=== PATIENT | male | born 1980 | race Caucasian/White ===

== ENCOUNTER 2025-03-08 01:08 | Observation (INO) | payer OTHER ==
[~2025-03-08] VITALS: Ht 180.3 cm; Wt 138.8 kg
[2025-03-08] MEDS ORDERED: VANCOMYCIN HCL 1.5 GM/250 ML BAG IV STA (01:15)
--- NOTE | 2025-03-08 01:25 | ERN ---
General Chief Complaint: Sepsis Stated Complaint: FEVER Time Seen by MD: 01:15 History of Present Illness Initial Comments 44-year-old male history of hypertension on blood pressure medications follow up by PCP in [facility] here for evaluation of elevated heart rate. Patient states that he was recently seen and evaluated by his PCP after he was diagnosed with a an abscess to his right inguinal region. He was given antibiotics and a small incision and drainage was done at that time. However he still states that he might have some drainage from that area. Associated signs and symptoms include fever. No cough or shortness a breath. No nausea vomiting diarrhea. No abdominal pain. Do not chest pain. Allergies: Coded Allergies: carbinoxamine (Unverified Allergy, Unknown, 03/08/25) levofloxacin (Unverified Allergy, Unknown, 03/08/25) Past Medical History Past Medical History: Hypertension, Other Medical History Other: SEASONAL ALLERGIES Past Surgical History: Other Surgical History Other: BILATERAL EYES Skin: (+) abscess Review of Systems: was completed, & the rest were negative. Physical Exam General Appearance: (+) no apparent distress, (+) obese Orientation: (+) alert, (+) oriented x 3 Head/Face Trauma: No Eye: bilateral eye normal inspection, bilateral eye PERRL, bilateral eye EOMI Ear, Nose, Throat: (+) hearing grossly normal, (+) normal ENT inspection, (+) moist mucous membraine, (+) normal pharynx Neck: (+) normal inspection Heart: (+) regular; (-) murmur Gastrointestinal: (+) soft, (+) non-tender Results Laboratory and Microbiology Lab and Micro Result Laboratory Tests Test 03/08/25 01:25 03/08/25 01:46 White Blood Count 13.3 K/uL (4.8-10.8) H Red Blood Count 5.13 MIL/uL (4.50-6.20) Hemoglobin 15.1 g/dL (14.0-18.0) Hematocrit 45.1 % (42-54) Mean Corpuscular Volume 87.9 fL (79-99) Mean Corpuscular Hemoglobin 29.4 pg (27.0-33.0) Mean Corpuscular Hemoglobin Concent 33.5 g/dL (32.0-36.0) Red Cell Distribution Width 12.4 % (11.0-15.5) Platelet Count 321 K/uL (130-400) Mean Platelet Volume 9.9 fL (7.5-10.5) Immature Granulocyte % (Auto) 0.4 % (0-1) Neutrophils (%) (Auto) 77.1 % (40.0-77.0) H Lymphocytes (%) (Auto) 10.7 % (21.0-51.0) L Monocytes (%) (Auto) 11.1 % (3.0-13.0) Eosinophils (%) (Auto) 0.5 % (0.0-8.0) Basophils (%) (Auto) 0.2 % (0.0-5.0) Neutrophils # (Auto) 10.2 K/uL (1.8-7.7) H Lymphocytes # (Auto) 1.4 K/uL (1.0-4.8) Monocytes # (Auto) 1.5 K/uL (0.1-1.0) H Eosinophils # (Auto) 0.06 K/uL (0.00-0.70) Basophils # (Auto) 0.03 K/uL (0.00-0.20) Absolute Immature Granulocyte (auto 0.05 K/uL (0-1) Nucleated Red Blood Cells 0.0 % (0.0-0.19) Sodium Level 135 mmol/L (136-145) L Potassium Level 4.1 mmol/L (3.5-5.1) Chloride Level 99 mmol/L (101-111) L Carbon Dioxide Level 28 mmol/L (21-32) Blood Urea Nitrogen 19 mg/dL (7-18) H Creatinine 0.9 mg/dL (0.5-1.3) Glomerular Filtration Rate Calc 107 mL/min (>90) Random Glucose 124 mg/dL (70-105) H Lactic Acid Level 2.2 mmol/L (0.8-2.5) Total Calcium 9.6 mg/dL (8.5-10.1) Total Creatine Kinase 166 U/L (21-232) Troponin I High Sensitivity 25 ng/L (4-75) Influenza Type A Antigen Negative For Type A Influenza Type B Antigen Negative For Type B SARS-CoV-2 Antigen (Rapid) PRESUMPTIVE NEGATIVE MDM 44-year-old male here for evaluation of right inguinal region abscess. He is meeting sepsis criteria thus we will initiate the sepsis protocol. Disposition pending results of labs and imaging. ED Course Orders Procedure Category Date Status Time Cbc With Differential LAB 03/08/25 Complete 01:15 Blood Cult ROLANDO 03/08/25 In Process 01:15 Urinalysis Profile LAB 03/08/25 Logged 01:15 Culture Urine ROLANDO 03/08/25 Logged 01:15 0.9%Nacl 1000ml (Ns PHA 03/08/25 In Process 1000ml) 01:30 Creatine Kinase, Total LAB 03/08/25 Complete 01:15 Troponin I High LAB 03/08/25 Complete Sensitivity 01:15 Lactic Acid LAB 03/08/25 Complete 01:15 Basic Metabolic Panel LAB 03/08/25 Complete 01:15 Vancomycin 1.5 Gm/250 PHA 03/08/25 Complete Ml Bag (Vancomycin 01:15 Vancomycin 2gm/500 Ml PHA 03/08/25 In Process Bag (Vancomycin 2g 02:00 Vancomycin 1g/250ml PHA 03/08/25 Complete Kit (Vancomycin 1g/2 01:30 Covid19 (Sars Antigen LAB 03/08/25 Complete Rapid) 01:54 Influenza Type A & B, LAB 03/08/25 Complete Rapid 01:54 Chest 1vw RAD 03/08/25 Logged 02:14 Aerobic Culture ROLANDO 03/08/25 Logged 02:35 Ibuprofen 600 Mg PHA 03/08/25 Complete Tablet (Motrin) 03:00 Current Medications Medications (Trade) Dose Ordered Sig/John Route PRN Reason Start Time Stop Time Status Last Admin Dose Admin Ibuprofen (moTRIN) 600 mg ONCE ONCE PO 03/08/25 03:00 03/08/25 03:01 DC 03/08/25 02:55 Sodium Chloride 4,350 ml @ 1,450 mls/hr ONCE ONCE IV 03/08/25 01:30 03/08/25 04:29 03/08/25 01:35 Vancomycin HCl 500 ml @ 125 mls/hr ONCE ONCE IV 03/08/25 02:00 03/08/25 05:59 03/08/25 01:53 Vancomycin HCl 500 ml @ As Directed STK-MED ONCE IV 03/08/25 01:30 03/08/25 01:31 DC Vancomycin HCl (Vancomycin 1.5 Gm/250 ml Bag) 1.5 gm ONCE STAT IV 03/08/25 01:15 03/08/25 01:26 DC Vital Signs Date Time Temp Pulse Resp B/P (MAP) Pulse Ox O2 Delivery O2 Flow Rate FiO2 03/08/25 01:27 101.1 113 18 155/65 100 Room Air* 0 21 03/08/25 01:10 100.6 124 20 155/79 97 Room Air Patient is seen and evaluated by me he is a 44-year-old male with a history of hypertension who we will be admitted for sepsis secondary to failed outpatient treatment of inguinal abscess. He was seen by his PCP and given doxycycline however he was unable to tolerate the doxycycline thus he was switched over to azithromycin. He presents today because of fever and increased heart rate. On my exam he has an old inguinal abscess that is draining mildly at the right inguinal region. We will admit the patient for sepsis secondary to inguinal abscess. Patient is a aware of the admission and he is amenable to staying. Sepsis protocol was initiated. DX & DISP Disposition: Inpatient Decision to Admit Date: Mar 08, 2025 Decision to Admit Time: 01:39 Departure Impression: Primary Impression: Sepsis Additional Impression: Inguinal abscess Condition: Stable Assign Patient to: Spoke to [facility] who will admit the patient Referrals: NONE (PCP) MYAH LOVETT MD Mar 08, 2025 01:25
[2025-03-08 01:39] LABS: IMMATURE GRANULOCYTE ABSOLUTE 0.05 K/uL (0-1); NUCLEATED RED BLOOD CELLS 0.0 % (0.0-0.19); PLATELET COUNT (AUTO) 321 K/uL (130-400); RED BLOOD CELL COUNT(AUTO) 5.13 MIL/uL (4.50-6.20); RED CELL DISTRIBUTION WIDTH 12.4 % (11.0-15.5); WHITE BLOOD COUNT (AUTO) 13.3 K/uL (4.8-10.8)
[2025-03-08] MEDS: VANCOMYCIN 1G/250ML KIT 500 ML IV ONE (01:45)
[2025-03-08] MEDS: VANCOMYCIN 2GM/500 ML BAG 500 ML IV ONE (01:46)
[2025-03-08 01:48] LABS: CREATININE 0.9 mg/dL (0.5-1.3); GLOMERULAR FILTR. RATE CALC 107.0 mL/min (>90); GLUCOSE,RANDOM 124.0 mg/dL (70-105); SODIUM SERUM 135.0 mmol/L (136-145); UREA NITROGEN, BLOOD 19.0 mg/dL (7-18)
[2025-03-08 01:54] LABS: CREATINE KINASE, TOTAL 166.0 U/L (21-232)
[2025-03-08 02:22] LABS: COVID19 (SARS ANTIGEN RAPID) PRESUMPTIVE NEGATIVE (NEGATIVE)
[2025-03-08 02:58] LABS: INFLUENZA TYPE A Negative For Type A (NEGATIVE); INFLUENZA TYPE B Negative For Type B (NEGATIVE)
[2025-03-08 03:19] LABS: APPEARANCE,URINE CLEAR (CLEAR); GLUCOSE, URINE (UA) NEGATIVE (NEGATIVE); LEUKOCYTE ESTERASE ,URINE NEGATIVE Leu/uL (NEGATIVE); NITRATE,URINE NEGATIVE (NEGATIVE); OCCULT BLOOD,URINE +- (TRACE) (NEGATIVE)
[2025-03-08 03:25] LABS: ADD UA MICROSCOPIC YES
[2025-03-08] MEDS ORDERED: PoTASSium chl 10% ELIXIR 20MEQ 20 MEQ/15 ML UDCUP PO PRN (03:30)
[2025-03-08] MEDS ORDERED: VANCOMYCIN PROTOCOL PER PHARMACY IV SCH (03:30)
[2025-03-08] MEDS ORDERED: VANCOMYCIN 1G/250ML KIT 250 ML IV SCH (03:30)
[2025-03-08] MEDS ORDERED: PoTASSium chloRIDE 20MEQ ER 20 MEQ ERTAB PO PRN (03:30)
[2025-03-08] MEDS ORDERED: MAGNESIUM 2GM PREMIX 50ML 50 ML IV PRN (03:30)
[2025-03-08] MEDS ORDERED: HYDROcodone/APAP 5/325 1 TAB TABLET PO PRN (03:30)
--- NOTE | 2025-03-08 03:42 | HMCIMG ---
EXAM: CR Chest, 1 view CLINICAL HISTORY: Sepsis. COMPARISON: None provided. FINDINGS: Portions of the bilateral lower zones and CP angles are excluded from the image, which limits the optimal evaluation. The remaining lung simms are clear. The lungs show no infiltrates or other acute findings. No pleural effusion or pneumothorax. The cardiomediastinal silhouette is within normal limits. No acute osseous abnormality. IMPRESSION: No acute cardiopulmonary process is evident. /[place]
--- NOTE | 2025-03-08 03:54 | HP ---
[facility] PH[facility] Date of Service: Mar 08, 2025 Time of Service: 02:28 PCP: Brad Godinez HISTORY OF PRESENT ILLNESS: This is a 44 year old male morbidly obese and history of hypertension and boil who presents to the ED for complaints of fever and elevated heart rate.Patient reports he was sleeping and woke up with a HR ranging from 120-140 and his temperature from 102 - 103.Patient states he has an abscess to his right inguinal area which started 2 weeks ago. Patient reports he was seen by his PCP and was started initially on Doxycycline and only took 2 doses because he was unable to tolerate the meds therefore it was switch to Azithromycin for 5 days and completed the treatment.Patient states that there was no relief or improvement.On further evaluation patient reports he also has pain on his periumbilical area which is sharp in nature.Patient reports he used to have a boil on his right inguinal hernia when he was 19 years old and an I&D was done and was started on Bactrim and it subsided and now it came on the same location he said. Seen and examined patient in the ER awake,alert ,coherent and ambulatory,appears comfortable.Patient denies chest pain,palpitation,shortness of breath,nausea and vomiting. Latest vital signs temperature 101.1, heart rate 113, pressure 155/65 saturation 100% on room air. Labs: WBC 13 with negative left shift of neutrophils 77, hemoglobin 15 hematocrit 45, platelet count 321. Sodium 135, chloride 99, BUN 19 glucose 124 lactic acid 2.2 troponin 25. Influenza type a and B negative SARS COVID negative. While in the ER patient received vancomycin IV, ibuprofen 600 mg p.o. and fluid resuscitation of NS 30 mL/kilogram over 3 hours. We will admit patient for further medical management. REVIEW OF SYSTEMS CONSTITUTIONAL: Fever Denies night sweats. No unintentional weight loss reported. NEUROLOGICAL: Denies headache, amaurosis fugax, motor weakness, sensory deficit, vertigo/spinning sensation, gait abnormalities, or tremors. ENT: No hearing loss, otalgia, otorrhea, rhinitis, rhinorrhea, hoarseness, or sore throat. CARDIOVASCULAR: Denies any exertional angina, dyspnea on exertion, orthopnea, paroxysmal nocturnal dyspnea, palpitations, life-threatening arrhythmias, claudication. PULMONARY: Denies any shortness of breath, cough, phlegm/sputum, hemoptysis, pleuritic chest pain. SLEEP: Denies morning headaches, daytime somnolence or napping. Denies difficulty falling asleep, staying asleep, waking from sleep. Denies knowledge of snoring. GASTROINTESTINAL: Abdominal pain located around periumbilical area Denies any type of dysphagia to either liquids or solids. Denies nausea, vomiting, pyrosis, early satiety, diarrhea, constipation, or changes in stool consistency or caliber. Denies coffee-ground emesis, hematemesis, hematochezia, or melanotic stools. GENITOURINARY: Denies frequency, urgency, nocturia, hematuria or incontinence (Storage/Irritative symptoms.) Low urinary stream, straining to void, urinary intermittency or hesitancy, splitting of the voiding stream, terminal dribbling. ENDOCRINOLOGIC: Denies polyuria, polydipsia, polyphagia or heat/cold intolerances. HEMATOLOGIC: Denies thrombophilia/previous clots, or coagulopathy/bleeding disorders. ONCOLOGIC: Denies personal history of malignancy. DERMATOLOGIC: Right inguinal abscess PSYCHIATRIC: Denies any suicidal or homicidal ideation. Denies hallucinations. PAST MEDICAL HISTORY: [ Hypertension , morbid obesity and boil ] PAST SURGICAL HISTORY: [ I and D and bilateral eye surgery at the age of [age] years old ] PAST SOCIAL HISTORY: [ Patient lives with . Patient denies alcohol tobacco and recreational drug ] FAMILY HISTORY: [ Diabetes ] Coded Allergies: carbinoxamine (Unverified Allergy, Unknown, 03/08/25) levofloxacin (Unverified Allergy, Unknown, 03/08/25) PHYSICAL EXAM GENERAL APPEARANCE: The patient is awake, alert, and oriented, in no acute cardiopulmonary distress. NEUROLOGICAL: Cranial nerves II-XII grossly intact. Motor is 5/5 in bilateral upper and lower extremities proximal to distal. No sensory deficits. HEENT: Face is symmetric. Pupils are equal and reactive. Extraocular movements are intact. NECK: Supple. No JVD. No thyromegaly. No submental, submandibular, pre- /postauricular, occipital or supraclavicular lymphadenopathy. CHEST: Normal chest expansion. No Telemetry. LUNGS: Absence of any rales, rhonchi or any wheezing. CARDIOVASCULAR: Tachycardic Regular. S1 and S2 normal. No appreciable rubs, murmurs or gallops. ABDOMEN: Tenderness around periumbilical area on palpation Soft and nondistended. There is no rebound, voluntary guarding, or rigidity. : Deferred. No Belle. EXTREMITIES: Non-edematous and not cyanotic. No clubbing. Good capillary refi ll. SKIN: swollen and there is a firmed induration around right inguinal area. Vital Sign (Last 24 Hours) 03/08/25 01:27 Temp 101.1 Pulse 113 Resp 18 B/P (MAP) 155/65 Pulse Ox 100 O2 Delivery Room Air* O2 Flow Rate 0 FiO2 21 LABS: Laboratory: Test 03/08/25 01:46 03/08/25 01:25 Range/Units Influenza Type A Antigen Negative For Type A NEGATIVE Influenza Type B Antigen Negative For Type B NEGATIVE SARS-CoV-2 Antigen (Rapid) PRESUMPTIVE NEGATIVE NEGATIVE White Blood Count 13.3 H 4.8-10.8 K/uL Red Blood Count 5.13 4.50-6.20 MIL/uL Hemoglobin 15.1 14.0-18.0 g/dL Hematocrit 45.1 42-54 % Mean Corpuscular Volume 87.9 79-99 fL Mean Corpuscular Hemoglobin 29.4 27.0-33.0 pg Mean Corpuscular Hemoglobin Concent 33.5 32.0-36.0 g/dL Red Cell Distribution Width 12.4 11.0-15.5 % Platelet Count 321 130-400 K/uL Mean Platelet Volume 9.9 7.5-10.5 fL Immature Granulocyte % (Auto) 0.4 0-1 % Neutrophils (%) (Auto) 77.1 H 40.0-77.0 % Lymphocytes (%) (Auto) 10.7 L 21.0-51.0 % Monocytes (%) (Auto) 11.1 3.0-13.0 % Eosinophils (%) (Auto) 0.5 0.0-8.0 % Basophils (%) (Auto) 0.2 0.0-5.0 % Neutrophils # (Auto) 10.2 H 1.8-7.7 K/uL Lymphocytes # (Auto) 1.4 1.0-4.8 K/uL Monocytes # (Auto) 1.5 H 0.1-1.0 K/uL Eosinophils # (Auto) 0.06 0.00-0.70 K/uL Basophils # (Auto) 0.03 0.00-0.20 K/uL Absolute Immature Granulocyte (auto 0.05 0-1 K/uL Nucleated Red Blood Cells 0.0 0.0-0.19 % Sodium Level 135 L 136-145 mmol/L Potassium Level 4.1 3.5-5.1 mmol/L Chloride Level 99 L 101-111 mmol/L Carbon Dioxide Level 28 21-32 mmol/L Blood Urea Nitrogen 19 H 7-18 mg/dL Creatinine 0.9 0.5-1.3 mg/dL Glomerular Filtration Rate Calc 107 >90 mL/min Random Glucose 124 H 70-105 mg/dL Lactic Acid Level 2.2 0.8-2.5 mmol/L Total Calcium 9.6 8.5-10.1 mg/dL Total Creatine Kinase 166 21-232 U/L Troponin I High Sensitivity 25 4-75 ng/L Current Medications Medications (Trade) Dose Ordered Sig/John Route PRN Reason Start Time Stop Time Status Last Admin Dose Admin Vancomycin HCl (Vancomycin 1.5 Gm/250 ml Bag) 1.5 gm ONCE STAT IV 03/08/25 01:15 03/08/25 01:26 DC DIAGNOSTICS / RADIOLOGY: [ ] ASSESSMENT: Recurrent right inguinal abscess POA R/o deep abscess or early necrotizing infection POA Sepsis 2/2 right inguinal abscess POA Morbid obesity POA Hyperglycemia POA Possible dehydration POA Hypertension POA PLAN: We will admit patient in medical surgical We will start on consistent carb diet We will start NS @ 100 ml / hr x2 bags and re evaluate We will start on Zosyn IV and vancomycin for broad-spectrum coverage We will start on famotidine 20 mg p.o. daily for GI prophylaxis We will replace electrolytes as needed per protocol We will add prn medication for fever,pain,cough , nausea and vomiting We will reconcile home meds once medlist available We will obtain CT abdomen and pelvis without contrast We will seek Infectious Disease consultation We will seek general surgery consultation We will request for urinalysis and follow-up chest x-ray result result We will request labs in am Further orders to follow depending on above results Case discussed with attending physician and came up with above treatment and plan of care. ADVANCED CARE PLANNING 1. Which of the following were discussed? Hospice Care - No Therapeutic options - Yes Advance Directives - No Other discussions - 2. Discussed with who? Patient and 3. Voluntary nature of this service was explained to the patient? Yes 4. Amount of time spent - _22 min 5. Reviewed by Physician? (if this service was performed by NPP) Yes Patient seen and examined by me. Agree with note by PHYSICIAN EXTENDER SEE ADDITIONAL ORDERS PER CHART DISCUSSED WITH NURSING STAFF PADMA BLACK [employer] SERVICE SUPERVISOR Mar 08, 2025 03:53
--- NOTE | 2025-03-08 03:56 | NUR ---
PT DENIES CT SCAN AT THIS TIME. HOSPITALIST SAMPLE DRILLER MADE AWARE. PER SAMPLE DRILLER, WILL DO SOFT TISSUE ULTRASOUND INSTEAD.
[2025-03-08] MEDS: ZOSYN 3.375GM+NS 50ML 50 ML IV SCH (04:10)
[2025-03-08] MEDS: 0.9%NACL 1000ML 1,000 ML IV SCH (04:11)
[2025-03-08 05:00] VITALS: BP 131/70; PULSE 87; RESP 20; TEMP 98.4
[2025-03-08] MEDS ORDERED: LISI10TA24 PO (05:41)
[2025-03-08] MEDS ORDERED: MONT-39 PO (05:43)
[2025-03-08 07:27] LABS: IMMATURE GRANULOCYTE ABSOLUTE 0.04 K/uL (0-1); NUCLEATED RED BLOOD CELLS 0.0 % (0.0-0.19); PLATELET COUNT (AUTO) 269 K/uL (130-400); RED BLOOD CELL COUNT(AUTO) 4.62 MIL/uL (4.50-6.20); RED CELL DISTRIBUTION WIDTH 12.6 % (11.0-15.5); WHITE BLOOD COUNT (AUTO) 12.5 K/uL (4.8-10.8)
[2025-03-08 07:44] LABS: ASPARTATE AMINOTRANSFERASE 21.0 U/L (10-37); CREATININE 0.6 mg/dL (0.5-1.3); GLOMERULAR FILTR. RATE CALC 121.0 mL/min (>90); GLUCOSE,RANDOM 106.0 mg/dL (70-105); SODIUM SERUM 135.0 mmol/L (136-145); TOTAL PROTEIN, SERUM 6.9 g/dL (6.0-8.3); UREA NITROGEN, BLOOD 13.0 mg/dL (7-18)
[2025-03-08 07:45] LABS: ERYTHROCYTE SEDIMENTATION RATE 31 MM/HR (0-15)
[2025-03-08 08:00] VITALS: BP 133/75; PULSE 87; RESP 18; TEMP 98.2
[2025-03-08] MEDS: FAMOTIDINE 20MG TAB PO SCH (09:47)
--- NOTE | 2025-03-08 10:16 | PN ---
[facility] PROGRESS NOTE Date of Service: Mar 08, 2025 Time of Service: 10:10 SUBJECTIVE: The patient is a 44-year-old male with past medical history of hypertension (on Lisinopril 10 MG OD). The patient came to the ER with complaint of fever and increasing heart rate. As per the patient, he was in his usual state of health but at night between 9:00 p.m. until p.m. the patient woke up with increasing heart rate in the range of 120-140s and he was feeling hot therefore he checked his temperature and it was around 102-103 F. As per the patient, the patient had ear infection 2 weeks ago for which she was given antibiotics. He also had a la rge boil on his right middle medial to anterior thigh that reduced after he took doxycycline for 2 days. The patient did not like doxycycline and on request it was changed to azithromycin which he took for 5 days. The patient also complained of pain in the periumbilical area which was described as sharp in nature. The patient came to the ER with temperature of 100.6 F, heart rate 124, respiratory rate 20, blood pressure 155/79 and maintaining oxygen at 97% on room air. On admission the patient's hemoglobin is 15.1, WBC 13.3, platelets 321, sodium 135, potassium 4.1, chloride 99, bicarbonate 28, BUN 19, creatinine 0.9, troponin 25, lactic acid 2.2, and creatinine kinase 166. Urine showed trace occult blood and RBCs 6-10. Chest x-ray showed no cardiopulmonary pathology. Due to the periumbilical pain, a CT scan abdomen/pelvis was ordered but the patient said that he could not stay in the CT scan machine as he was getting claustrophobic therefore the CT scan could not be completed as the patient refused. Therefore, a soft tissue ultrasound was done of the boil on the right inguinal region. General surgery was consulted for recurrent right inguinal abscess to rule out deep abscess versus early necrotizing infection. The patient was started on vancomycin and Zosyn and Infectious Disease was consulted for antibiotic management. Blood culture and urine culture were sent from the ER. 03/08 The patient was seen and examined in room 4. The patient was alert, awake, oriented x 3. The patient has been afebrile since his admission and stated that he was feeling better then tomorrow. The patient still had abdominal tenderness in the periumbilical region therefore a possibility of CT abdomen/pelvis was discussed for which the patient was not fully convinced due to his feeling of claustrophobic in the machine. He was told that an option of getting Valium or Ativan before going for the scan to calm the patient down. The patient voiced understanding and stated that he will get back to us with a final decision. [facility] saw the patient and recommended no surgical intervention at the time with orders to treat with conservative management with IV antibiotics and warm compresses 3 times a day. The patient discussed with Dr. Hilario, General Surgeon, for the CT scan and as per the patient and the nurse both, general surgeon recommended against a CT scan. Infectious Disease was consulted and they started the patient on cefepime along with vancomycin. We are awaiting blood culture and urine culture results. REVIEW OF SYSTEMS CONSTITUTIONAL: Fever Denies night sweats. No unintentional weight loss rep orted. NEUROLOGICAL: Denies headache, amaurosis fugax, motor weakness, sensory deficit, vertigo/spinning sensation, gait abnormalities, or tremors. ENT: No hearing loss, otalgia, otorrhea, rhinitis, rhinorrhea, hoarseness, or sore throat. CARDIOVASCULAR: Denies any exertional angina, dyspnea on exertion, orthopnea, paroxysmal nocturnal dyspnea, palpitations, life-threatening arrhythmias, claudication. PULMONARY: Denies any shortness of breath, cough, phlegm/sputum, hemoptysis, pleuritic chest pain. SLEEP: Denies morning headaches, daytime somnolence or napping. Denies difficulty falling asleep, staying asleep, waking from sleep. Denies knowledge of snoring. GASTROINTESTINAL: Abdominal pain located around periumbilical area Denies any type of dysphagia to either liquids or solids. Denies nausea, vomiting, pyrosis, early satiety, diarrhea, constipation, or changes in stool consistency or caliber. Denies coffee-ground emesis, hematemesis, hematochezia, or melanotic stools. GENITOURINARY: Denies frequency, urgency, nocturia, hematuria or incontinence (Storage/Irritative symptoms.) Low urinary stream, straining to void, urinary intermittency or hesitancy, splitting of the voiding stream, terminal dribbling. ENDOCRINOLOGIC: Denies polyuria, polydipsia, polyphagia or heat/cold intolerances. HEMATOLOGIC: Denies thrombophilia/previous clots, or coagulopathy/bleeding disorders. ONCOLOGIC: Denies personal history of malignancy. DERMATOLOGIC: Right inguinal abscess PSYCHIATRIC: Denies any suicidal or homicidal ideation. Denies hallucinations. PHYSICAL EXAM GENERAL APPEARANCE: The patient is awake, alert, and oriented, in no acute cardiopulmonary distress. NEUROLOGICAL: Cranial nerves II-XII grossly intact. Motor is 5/5 in bilateral upper and lower extremities proximal to distal. No sensory deficits. HEENT: Face is symmetric. Pupils are equal and reactive. Extraocular movements are intact. NECK: Supple. No JVD. No thyromegaly. No submental, submandibular, pre- /postauricular, occipital or supraclavicular lymphadenopathy. CHEST: Normal chest expansion. No Telemetry. LUNGS: Absence of any rales, rhonchi or any wheezing. CARDIOVASCULAR: Regular. S1 and S2 normal. No appreciable rubs, murmurs or gallops. ABDOMEN: Tenderness around periumbilical area on palpation Soft and nond istended. There is no rebound, voluntary guarding, or rigidity. : Deferred. No Belle. EXTREMITIES: Non-edematous and not cyanotic. No clubbing. Good capillary refill. SKIN: swollen and there is a firmed induration around right inguinal area. Vital Signs (last 8hr) Date Time Temp Pulse Resp B/P (MAP) Pulse Ox O2 Delivery O2 Flow Rate FiO2 03/08/25 08:00 98.2 87 18 133/75 97 Room Air 03/08/25 05:30 Room Air* 0 21 03/08/25 05:00 98.4 87 20 131/70 97 Room Air 03/08/25 04:45 99.0 105 20 145/66 98 Room Air* 0 21 LABS: Laboratory: Test 03/08/25 07:20 03/08/25 01:46 03/08/25 01:40 03/08/25 01:25 Range/Units White Blood Count 12.5 H 4.8-10.8 K/uL Red Blood Count 4.62 4.50-6.20 MIL/uL Hemoglobin 13.6 L 14.0-18.0 g/dL Hematocrit 40.9 L 42-54 % Mean Corpuscular Volume 88.5 79-99 fL Mean Corpuscular Hemoglobin 29.4 27.0-33.0 pg Mean Corpuscular Hemoglobin Concent 33.3 32.0-36.0 g/dL Red Cell Distribution Width 12.6 11.0-15.5 % Platelet Count 269 130-400 K/uL Mean Platelet Volume 9.7 7.5-10.5 fL Immature Granulocyte % (Auto) 0.3 0-1 % Neutrophils (%) (Auto) 77.7 H 40.0-77.0 % Lymphocytes (%) (Auto) 10.8 L 21.0-51.0 % Monocytes (%) (Auto) 10.6 3.0-13.0 % Eosinophils (%) (Auto) 0.3 0.0-8.0 % Basophils (%) (Auto) 0.3 0.0-5.0 % Neutrophils # (Auto) 9.7 H 1.8-7.7 K/uL Lymphocytes # (Auto) 1.4 1.0-4.8 K/uL Monocytes # (Auto) 1.3 H 0.1-1.0 K/uL Eosinophils # (Auto) 0.04 0.00-0.70 K/uL Basophils # (Auto) 0.04 0.00-0.20 K/uL Absolute Immature Granulocyte (auto 0.04 0-1 K/uL Nucleated Red Blood Cells 0.0 0.0-0.19 % Erythrocyte Sedimentation Rate 31 H 0-15 MM/HR Sodium Level 135 L 136-145 mmol/L Potassium Level 3.9 3.5-5.1 mmol/L Chloride Level 103 101-111 mmol/L Carbon Dioxide Level 26 21-32 mmol/L Blood Urea Nitrogen 13 7-18 mg/dL Creatinine 0.6 0.5-1.3 mg/dL Glomerular Filtration Rate Calc 121 >90 mL/min Random Glucose 106 H 70-105 mg/dL Hemoglobin A1c 5.5 4.0-6.0 % Estimated Average Glucose (eAG) 111 70-126 mg/dL Lactic Acid Level 1.1 0.8-2.5 mmol/L Total Calcium 8.6 8.5-10.1 mg/dL Total Bilirubin 0.7 0.2-1.0 mg/dL Aspartate Amino Transf (AST/SGOT) 21 10-37 U/L Alanine Aminotransferase (ALT/SGPT) 27 12-78 U/L Alkaline Phosphatase 71 50-136 U/L Troponin I High Sensitivity 21 4-75 ng/L Total Protein 6.9 6.0-8.3 g/dL Albumin 3.0 L 3.5-5.0 g/dL Procalcitonin < 0.05 L 0.05-0.5 ng/mL Influenza Type A Antigen Negative For Type A NEGATIVE Influenza Type B Antigen Negative For Type B NEGATIVE SARS-CoV-2 Antigen (Rapid) PRESUMPTIVE NEGATIVE NEGATIVE Urine Color YELLOW YELLOW Urine Appearance CLEAR CLEAR Urine pH 7.0 5.0-8.0 Urine Specific Leopold 1.028 1.001-1.031 Urine Protein NEGATIVE NEGATIVE mg/dL Urine Glucose (UA) NEGATIVE NEGATIVE mg/dL Urine Ketones NEGATIVE NEGATIVE mg/dL Urine Occult Blood +- (TRACE) H NEGATIVE Urine Nitrate NEGATIVE NEGATIVE Urine Bilirubin NEGATIVE NEGATIVE mg/dL Urine Urobilinogen 0.2 0.2-1.0 mg/dL Urine Leukocyte Esterase NEGATIVE NEGATIVE Kleber/uL Urine RBC 6-10 H 0-1 /HPF Urine WBC 0-1 0-1 /HPF Urine Bacteria None None Seen /HPF Total Creatine Kinase 166 21-232 U/L Current Medications Medications (Trade) Dose Ordered Sig/John Route PRN Reason Start Time Stop Time Status Last Admin Dose Admin Acetaminophen (TYLenol 325MG TAB) 650 mg Q4H PRN PO MILD PAIN (1-3) 03/08/25 03:30 04/07/25 03:29 Acetaminophen (TYLenol 325MG TAB) 650 mg Q6H PRN PO TEMPERATURE GREATER THAN 101.5 03/08/25 03:30 04/07/25 03:29 Acetaminophen/ Hydrocodone Bitart (NORco 5/325MG) 1 tab Q4H PRN PO MODERATE PAIN (4-6) 03/08/25 03:30 03/13/25 03:29 Famotidine (Pepcid 20mg Tab) 20 mg DAILY PO 03/08/25 09:00 04/07/25 08:59 03/08/25 09:47 20 MG Magnesium Sulfate 50 ml @ 0 mls/hr PROTOCOL PRN IV OTHER [SEE ORDER COMMENTS] 03/08/25 03:30 04/07/25 03:29 Ondansetron HCl (zoFRAN 4MG INJ) 4 mg Q6H PRN IV NAUSEA/VOMITING 03/08/25 03:30 04/07/25 03:29 Piperacillin Sod/ Tazobactam Sod 50 ml @ 12.5 mls/hr Q8H IV 03/08/25 04:00 03/18/25 03:59 03/08/25 04:10 12.5 MLS/HR Potassium Chloride 100 ml @ 100 mls/hr AD PRN IV POTASSIUM PROTOCOL 03/08/25 03:30 04/07/25 03:29 Potassium Chloride (K-Dur/Klor-Con 20meq) 20 meq AD PRN PO POTASSIUM PROTOCOL 03/08/25 03:30 04/07/25 03:29 Potassium Chloride (KCl 10% Elixir 20meq/15ml) 20 meq AD PRN PO POTASSIUM PROTOCOL 03/08/25 03:30 04/07/25 03:29 Sodium Chloride 1,000 ml @ 100 mls/hr Q10H IV 03/08/25 03:30 04/07/25 03:29 03/08/25 04:11 100 MLS/HR Vancomycin HCl 250 ml @ 125 mls/hr ONCE IV 03/08/25 03:30 03/08/25 03:27 DC Vancomycin HCl 250 ml @ 125 mls/hr Q12H IV 03/08/25 12:00 03/18/25 11:59 Vancomycin HCl (Vancomycin Protocol) 1 each AD IV 03/08/25 03:30 03/22/25 03:29 Vancomycin HCl (Vancomycin 1.5 Gm/250 ml Bag) 1.5 gm ONCE STAT IV 03/08/25 01:15 03/08/25 01:26 DC DIAGNOSTICS / RADIOLOGY: PATIENT: DICK FANG MR#: [id number] : 1980 SEX: M AGE: 44 LOCATION: [facility] ORDER 4 STATUS: ADM IN REPORT#: [id number] SERVICE 3 REASON: r/p sepsis ORDERING PHYSICIAN: MYAH LOVETT MD PROCEDURE: CXR1VW - CHEST 1VW EXAM: CR Chest, 1 view CLINICAL HISTORY: Sepsis. COMPARISON: None provided. FINDINGS: Portions of the bilateral lower zones and CP angles are excluded from the image, which limits the optimal evaluation. The remaining lung simms are clear. The lungs show no infiltrates or other acute findings. No pleural effusion or pneumothorax. The cardiomediastinal silhouette is within normal limits. No acute osseous abnormality. IMPRESSION: No acute cardiopulmonary process is evident. /[place] DICTATED BY: JOHNNY SOLITARIO Jr., MD DATE: 03/08/25441 ELECTRONICALLY SIGNED BY: JOHNNY SOLITARIO Jr., MD DATE: 03/08/25441 ASSESSMENT: Recurrent right inguinal abscess POA R/o deep abscess or early necrotizing infection POA Sepsis 2/2 right inguinal abscess POA Morbid obesity POA Hyperglycemia POA Possible dehydration POA Hypertension POA PLAN: Recurrent right inguinal abscess, R/o deep abscess or early necrotizing infection, Sepsis 2/2 right inguinal abscess * Ordered soft tissue ultrasound of the groin * General surgery consulted for recurrent right inguinal abscess and to rule out deep abscess versus early necrotizing infection. * General surgery recommended conservative management with IV antibiotics and warm compresses 3 times daily * Infectious disease consulted for antibiotic management * Added cefepime and continued vancomycin - Day 1 * On acetaminophen p.r.n. and hydrocodone p.r.n. for pain * 1000 mL normal saline at 100 mL/hour * WBC tends 13.3>12.5 * Blood cultures awaited * Urine cultures awaited Hypertension * Blood pressure today 131/70 * On lisinopril 10 mg (Home Medication) ATTESTATION BY PHYSICIAN I have seen and examined the patient. I reviewed the documentation, medical decision making, and treatment plan as noted by the resident physician above. I agree with the findings and plan of care. Jeremiah Thacker IV, MD, SYED M MD Mar 08, 2025 10:16
--- NOTE | 2025-03-08 11:34 | CONS ---
GENERAL SURGERY CONSULTATION NOTE DATE OF CONSULTATION: Mar 08, 2025 TIME OF CONSULTATION: 11:31 CONSULTING SERVICE: Rene Pedro MD REQUESTING PHYSICAIN: [ ] REASON FOR CONSULTATION: [ ] HISTORY OF PRESENT ILLNESS: 44-YEAR-OLD OBESE MALE THAT CAME IN WITH A HISTORY OF OVER THE LAST TWO WEEKS WORSENING PAIN OF THE RIGHT GROIN/UPPER THIGH. REPORTS A HISTORY OF AN ABSCESS IN THE AREA THAT HAD BEEN DRAINED IN THE PAST. REPORTS SOME LOWER ABDOMINAL DISCOMFORT. DENIES ANY NAUSEA NO VOMITING NO CHEST PAIN NO SHORTNESS OF BREATH NO DIARRHEA NO CONSTIPATION. PAST MEDICAL HISTORY: HYPERTENSION AND OBESITY PAST SURGICAL HISTORY: INCISION AND DRAINAGE OF ABSCESS IN THE PAST FAMILY HISTORY: [ ] SOCIAL HISTORY: DENIES ANY TOBACCO ALCOHOL OR ANY ILLICIT DRUG USE Current Medications Medications (Trade) Dose Ordered Sig/John Route Start Time Stop Time Status Last Admin Dose Admin Famotidine (Pepcid 20mg Tab) 20 mg DAILY PO 03/08/25 09:00 04/07/25 08:59 03/08/25 09:47 20 MG Lisinopril (Prinivil 10mg) 10 mg DAILY PO 03/09/25 09:00 04/08/25 08:59 Montelukast Sodium (SinguLAIR) 10 mg DAILY PO 03/09/25 09:00 04/08/25 08:59 Piperacillin Sod/ Tazobactam Sod 50 ml @ 12.5 mls/hr Q8H IV 03/08/25 04:00 03/18/25 03:59 03/08/25 04:10 12.5 MLS/HR Sodium Chloride 1,000 ml @ 100 mls/hr Q10H IV 03/08/25 03:30 04/07/25 03:29 03/08/25 04:11 100 MLS/HR Vancomycin HCl 250 ml @ 125 mls/hr ONCE IV 03/08/25 03:30 03/08/25 03:27 DC Vancomycin HCl 250 ml @ 125 mls/hr Q12H IV 03/08/25 12:00 03/18/25 11:59 Vancomycin HCl (Vancomycin Protocol) 1 each AD IV 03/08/25 03:30 03/22/25 03:29 Vancomycin HCl (Vancomycin 1.5 Gm/250 ml Bag) 1.5 gm ONCE STAT IV 03/08/25 01:15 03/08/25 01:26 DC Allergies: Coded Allergies: carbinoxamine (Unverified Allergy, Unknown, 03/08/25) levofloxacin (Unverified Allergy, Unknown, 03/08/25) REVIEW OF SYSTEMS: FAMILY SERVICES COORDINATOR: [Denies headaches or blurring of vision.] RESP: [No cough, chest pain or SOB.] CVS: [No palpitaions.] GI: [abdominal pain with nausea and vomiting, no diarrhea or constipation.] ROSS: [No dysuria or hematuria.] Musculoskeletal: [No swelling or joint pain.] BACK: [No pain or swelling.] All other systems are reviewed and essentially negative pertinent positives in HPI. PHYSICAL EXAMINATION: GENERAL: [Patient is lying comfortably in bed, HEAD: [Normal with no signs of head trauma. NECK: [TRACHEA MIDLINE LUNGS: No respiratory distress HEART: [Regular rate and rhythm. ABD: [Bowel sounds present,soft, no rebound, minimal tenderness to the suprapubic area. No hernias palpated. EXT: Right upper inner thigh there was an area of2 x 1 cm area of induration and fluctuance. There is no active drainage at the time of my exam no cellulitis. It is minimally fluctuant. SKIN: As above NEURO: [ Awake Alert and oriented x3. Vital Signs (last 8hr) Date Time Temp Pulse Resp B/P (MAP) Pulse Ox O2 Delivery O2 Flow Rate FiO2 03/08/25 08:00 98.2 87 18 133/75 97 Room Air 03/08/25 05:30 Room Air* 0 21 03/08/25 05:00 98.4 87 20 131/70 97 Room Air 03/08/25 04:45 99.0 105 20 145/66 98 Room Air* 0 21 LABORATORY: [ ] Hematology Labs: Test 03/08/25 07:20 Range/Units White Blood Count 12.5 H 4.8-10.8 K/uL Red Blood Count 4.62 4.50-6.20 MIL/uL Hemoglobin 13.6 L 14.0-18.0 g/dL Hematocrit 40.9 L 42-54 % Mean Corpuscular Volume 88.5 79-99 fL Mean Corpuscular Hemoglobin 29.4 27.0-33.0 pg Mean Corpuscular Hemoglobin Concent 33.3 32.0-36.0 g/dL Red Cell Distribution Width 12.6 11.0-15.5 % Platelet Count 269 130-400 K/uL Mean Platelet Volume 9.7 7.5-10.5 fL Immature Granulocyte % (Auto) 0.3 0-1 % Neutrophils (%) (Auto) 77.7 H 40.0-77.0 % Lymphocytes (%) (Auto) 10.8 L 21.0-51.0 % Monocytes (%) (Auto) 10.6 3.0-13.0 % Eosinophils (%) (Auto) 0.3 0.0-8.0 % Basophils (%) (Auto) 0.3 0.0-5.0 % Neutrophils # (Auto) 9.7 H 1.8-7.7 K/uL Lymphocytes # (Auto) 1.4 1.0-4.8 K/uL Monocytes # (Auto) 1.3 H 0.1-1.0 K/uL Eosinophils # (Auto) 0.04 0.00-0.70 K/uL Basophils # (Auto) 0.04 0.00-0.20 K/uL Absolute Immature Granulocyte (auto 0.04 0-1 K/uL Nucleated Red Blood Cells 0.0 0.0-0.19 % Erythrocyte Sedimentation Rate 31 H 0-15 MM/HR Chemistry Labs: Test 03/08/25 07:20 03/08/25 01:25 Range/Units Sodium Level 135 L 136-145 mmol/L Potassium Level 3.9 3.5-5.1 mmol/L Chloride Level 103 101-111 mmol/L Carbon Dioxide Level 26 21-32 mmol/L Blood Urea Nitrogen 13 7-18 mg/dL Creatinine 0.6 0.5-1.3 mg/dL Glomerular Filtration Rate Calc 121 >90 mL/min Random Glucose 106 H 70-105 mg/dL Hemoglobin A1c 5.5 4.0-6.0 % Estimated Average Glucose (eAG) 111 70-126 mg/dL Lactic Acid Level 1.1 0.8-2.5 mmol/L Total Calcium 8.6 8.5-10.1 mg/dL Total Bilirubin 0.7 0.2-1.0 mg/dL Aspartate Amino Transf (AST/SGOT) 21 10-37 U/L Alanine Aminotransferase (ALT/SGPT) 27 12-78 U/L Alkaline Phosphatase 71 50-136 U/L Troponin I High Sensitivity 21 4-75 ng/L Total Protein 6.9 6.0-8.3 g/dL Albumin 3.0 L 3.5-5.0 g/dL Procalcitonin < 0.05 L 0.05-0.5 ng/mL Total Creatine Kinase 166 21-232 U/L DIAGNOSTICS / RADIOLOGY: [Copy/Paste Echos/Imaging Report here] ASSESSMENT: Right upper thigh abscess PLAN: [No clinical signs of hernia. Small abscess at the right upper thigh that has already been draining. For now we will treat with conservative measure with IV antibiotics and warm compresses3 times a day. We will continue to evaluate tomorrow. DEACON MATHUR MD Mar 08, 2025 11:34
[2025-03-08 12:00] VITALS: BP 123/74; PULSE 86; RESP 18; TEMP 98.8
[2025-03-08 12:30] VITALS: O2SAT 98
[2025-03-08] MEDS: VANCOMYCIN 1.75 GM/250 ML BAG 250 ML IV SCH (13:42)
--- NOTE | 2025-03-08 15:57 | NUR ---
DC PLAN VISITED WITH PATIENT. PATIENT LIVES WITH PARENTS. INDEPENDENT ABLE TO PERFORM ADL'S. PATIENT HAS NO SERVICES OR DME'S. FEELS SAFE TO RETURN HOME. Addendum: 03/08/25 at 1558 by ALTA BAUGH RN CM Amended: Links added.
[2025-03-08 16:00] VITALS: BP 142/84; PULSE 94; RESP 18; TEMP 99.5
[2025-03-08 20:00] VITALS: BP 140/83; PULSE 95; RESP 20; TEMP 99.8; O2SAT 97
[2025-03-09] VITALS: BP 148/85; PULSE 98; RESP 20; TEMP 98.8
--- NOTE | 2025-03-09 01:24 | HMCIMG ---
EXAM: Ultrasound Soft Tissue Groin CLINICAL HISTORY: Right groin abscess/growth TECHNIQUE: Real-time ultrasound examination performed with image documentation. COMPARISON: None provided. FINDINGS: Echogenic area identified in the right groin measuring approximately 3.3 ??? 1.3 ??? 3.5 cm. Associated surrounding soft tissue redness and edema are noted, consistent with inflammatory change. No discrete drainable abscess or solid mass lesion identified. IMPRESSION: * Echogenic soft tissue thickening in the right groin with surrounding edema, suggestive of cellulitis or phlegmon. * No definite drainable abscess identified. * Recommend clinical correlation and short-term follow-up if symptoms persist or worsen. /Abdirahman
[2025-03-09 04:00] VITALS: BP 145/83; PULSE 90; RESP 20; TEMP 98.5
[2025-03-09 04:43] LABS: IMMATURE GRANULOCYTE ABSOLUTE 0.04 K/uL (0-1); NUCLEATED RED BLOOD CELLS 0.0 % (0.0-0.19); PLATELET COUNT (AUTO) 250 K/uL (130-400); RED BLOOD CELL COUNT(AUTO) 4.65 MIL/uL (4.50-6.20); RED CELL DISTRIBUTION WIDTH 12.9 % (11.0-15.5); WHITE BLOOD COUNT (AUTO) 13.0 K/uL (4.8-10.8)
[2025-03-09 05:07] LABS: ASPARTATE AMINOTRANSFERASE 17.0 U/L (10-37); CREATININE 0.8 mg/dL (0.5-1.3); GLOMERULAR FILTR. RATE CALC 111.0 mL/min (>90); GLUCOSE,RANDOM 91.0 mg/dL (70-105); SODIUM SERUM 135.0 mmol/L (136-145); TOTAL PROTEIN, SERUM 7.1 g/dL (6.0-8.3); UREA NITROGEN, BLOOD 12.0 mg/dL (7-18)
--- NOTE | 2025-03-09 06:57 | CONS ---
INFECTIOUS DISEASE CONSULTATION DATE OF SERVICE: 03/08/2025. REQUESTING PHYSICIAN: Archana Escamilla NP REASON FOR CONSULTATION: Sepsis and right groin abscess. HISTORY OF PRESENT ILLNESS: A 44-year-old male with morbid obesity, hypertension, recurrent boil, who presented to the hospital with fever, right groin pain and swelling. Pain and swelling started about two weeks ago. He noticed some spontaneous drainage. He took some antibiotics due to persistent fever and decided to come to the Emergency Room. T-max was 101. The patient's WBC is elevated. The patient has been seen by General Surgery who advised continuation of antibiotic and placement of warm compresses to the right groin swelling. No sick contacts. No recent travel. No diarrhea. No abdominal pain. PAST MEDICAL HISTORY: * Morbid obesity. * Hypertension. * Recurrent boil. SURGICAL HISTORY: * Right groin abscess and drainage. * Bilateral eye surgery. ALLERGIES: LEVOFLOXACIN. CURRENT MEDICATIONS: * Vancomycin. * Lisinopril. * Zosyn. SOCIAL HISTORY: No alcohol, tobacco or illicit drug use. FAMILY HISTORY: Noncontributory. REVIEW OF SYSTEMS: Greater than 10 system were reviewed and negative except as documented above. PHYSICAL EXAMINATION: GENERAL: A young male, awake. VITAL SIGNS: Temperature 98.2, pulse 87, respiratory rate 18, blood pressure 133/75. EYES: No icterus. Pupils equal and reactive. HENT: No oral thrush seen. Moist oral mucosa. NECK: Supple. No JVD or thyromegaly. LUNGS: Good air entry. No rales, no rhonchi. CARDIOVASCULAR: S1 and S2. Regular. No murmur heard. ABDOMEN: Obese, soft, nontender. Bowel sounds present. CENTRAL NERVOUS SYSTEM: Awake, alert, oriented x 3. No focal deficits. SKIN: No rashes. LYMPHATIC: No peripheral lymphadenopathy. BACK: No deformity. No pressure ulcer. MUSCULOSKELETAL: There is an area of abscess involving the right groin, which is tender. No purulent drainage. LABORATORY DATA: Sodium 135, potassium 3.9, BUN 13, creatinine 0.6. WBC 12.5, hemoglobin 13.6, platelets 269. Urinalysis is negative. negative. RADIOLOGY: Chest x-ray is unremarkable. ASSESSMENT: A 44-year-old male who presented with fever, chills and right groin swelling. CURRENT PROBLEMS: Include, * Sepsis. * Right groin abscess. * Morbid obesity. * Recurrent furunculosis. PLAN: * Discontinue Zosyn. * Continue vancomycin. * Start the patient on cefepime. * Continue wound care. * Follow up cultures. * Continue pain management. * Continue DVT prophylaxis. * The patient will followed up closely. Thank you for allowing me to participate in the care of this patient. TID: [id number] RECEIPT: [id number] [facility]
[2025-03-09 08:00] VITALS: BP 108/78; PULSE 87; RESP 18; TEMP 97.7
[2025-03-09] MEDS: LISINOPRIL 10 MG TABLET PO SCH (09:05)
[2025-03-09 12:00] VITALS: BP 110/65; PULSE 78; RESP 18; TEMP 97.8
[2025-03-09 12:48] VITALS: O2SAT 98
--- NOTE | 2025-03-09 12:48 | PN ---
[facility] PROGRESS NOTE Date of Service: Mar 09, 2025 Time of Service: 12:46 SUBJECTIVE: The patient is a 44-year-old male with past medical history of hypertension (on Lisinopril 10 MG OD). The patient came to the ER with complaint of fever and increasing heart rate. As per the patient, he was in his usual state of health but at night between 9:00 p.m. until p.m. the patient woke up with increasing heart rate in the range of 120-140s and he was feeling hot therefore he checked his temperature and it was around 102-103 F. As per the patient, the patient had ear infection 2 weeks ago for which she was given antibiotics. He also had a la rge boil on his right middle medial to anterior thigh that reduced after he took doxycycline for 2 days. The patient did not like doxycycline and on request it was changed to azithromycin which he took for 5 days. The patient also complained of pain in the periumbilical area which was described as sharp in nature. The patient came to the ER with temperature of 100.6 F, heart rate 124, respiratory rate 20, blood pressure 155/79 and maintaining oxygen at 97% on room air. On admission the patient's hemoglobin is 15.1, WBC 13.3, platelets 321, sodium 135, potassium 4.1, chloride 99, bicarbonate 28, BUN 19, creatinine 0.9, troponin 25, lactic acid 2.2, and creatinine kinase 166. Urine showed trace occult blood and RBCs 6-10. Chest x-ray showed no cardiopulmonary pathology. Due to the periumbilical pain, a CT scan abdomen/pelvis was ordered but the patient said that he could not stay in the CT scan machine as he was getting claustrophobic therefore the CT scan could not be completed as the patient refused. Therefore, a soft tissue ultrasound was done of the boil on the right inguinal region. General surgery was consulted for recurrent right inguinal abscess to rule out deep abscess versus early necrotizing infection. The patient was started on vancomycin and Zosyn and Infectious Disease was consulted for antibiotic management. Blood culture and urine culture were sent from the ER. 03/08 The patient was seen and examined in room 425. The patient was alert, awake, oriented x 3. The patient has been afebrile since his admission and stated that he was feeling better then tomorrow. The patient still had abdominal tenderness in the periumbilical region therefore a possibility of CT abdomen/pelvis was discussed for which the patient was not fully convinced due to his feeling of claustrophobic in the machine. He was told that an option of getting Valium or Ativan before going for the scan to calm the patient down. The patient voiced understanding and stated that he will get back to us with a final decision. G eneral surgery saw the patient and recommended no surgical intervention at the time with orders to treat with conservative management with IV antibiotics and warm compresses 3 times a day. The patient discussed with Dr. Hilario, General Surgeon, for the CT scan and as per the patient and the nurse both, general surgeon recommended against a CT scan. Infectious Disease was consulted and they started the patient on cefepime along with vancomycin. We are awaiting blood culture and urine culture results. 03/09 The patient was seen and examined in room 425. The patient was alert, awake, oriented x 3. The patient stated that he was feeling much better as compared to previous days. Patient had a soft tissue ultrasound that showed no definite drainable abscess which showed thickening in the right groin with surrounding edema that is suggestive of cellulitis or phlegmon. Blood culture showed no growth for 24 hours and urine culture showed less than [id number] CFU. The culture from the abscess showing Gram-positive and Gram-negative rods. The final result is awaited. REVIEW OF SYSTEMS CONSTITUTIONAL: Fever Denies night sweats. No unintentional weight loss reported. NEUROLOGICAL: Denies headache, amaurosis fugax, motor weakness, sensory deficit, vertigo/spinning sensation, gait abnormalities, or tremors. ENT: No hearing loss, otalgia, otorrhea, rhinitis, rhinorrhea, hoarseness, or sore throat. CARDIOVASCULAR: Denies any exertional angina, dyspnea on exertion, orthopnea, paroxysmal nocturnal dyspnea, palpitations, life-threatening arrhythmias, claudication. PULMONARY: Denies any shortness of breath, cough, phlegm/sputum, hemoptysis, pleuritic chest pain. SLEEP: Denies morning headaches, daytime somnolence or napping. Denies difficulty falling asleep, staying asleep, waking from sleep. Denies knowledge of snoring. GASTROINTESTINAL: Abdominal pain located around periumbilical area Denies any type of dysphagia to either liquids or solids. Denies nausea, vomiting, pyrosis, early satiety, diarrhea, constipation, or changes in stool consistency or caliber. Denies coffee-ground emesis, hematemesis, hematochezia, or melanotic stools. GENITOURINARY: Denies frequency, urgency, nocturia, hematuria or incontinence (Storage/Irritative symptoms.) Low urinary stream, straining to void, urinary intermittency or hesitancy, splitting of the voiding stream, terminal dribbling. ENDOCRINOLOGIC: Denies polyuria, polydipsia, polyphagia or heat/cold intolerances. HEMATOLOGIC: Denies thrombophilia/previous clots, or coagulopathy/bleeding disorders. ONCOLOGIC: Denies personal history of malignancy. DERMATOLOGIC: Right inguinal abscess PSYCHIATRIC: Denies any suicidal or homicidal ideation. Denies hallucinations. PHYSICAL EXAM GENERAL APPEARANCE: The patient is awake, alert, and oriented, in no acute cardiopulmonary distress. NEUROLOGICAL: Cranial nerves II-XII grossly intact. Motor is 5/5 in bilateral upper and lower extremities proximal to distal. No sensory deficits. HEENT: Face is symmetric. Pupils are equal and reactive. Extraocular movements are intact. NECK: Supple. No JVD. No thyromegaly. No submental, submandibular, pre- /postauricular, occipital or supraclavicular lymphadenopathy. CHEST: Normal chest expansion. No Telemetry. LUNGS: Absence of any rales, rhonchi or any wheezing. CARDIOVASCULAR: Regular. S1 and S2 normal. No appreciable rubs, murmurs or gallops. ABDOMEN: Tenderness around periumbilical area on palpation Soft and nondistended. There is no rebound, voluntary guarding, or rigidity. : Deferred. No Belle. EXTREMITIES: Non-edematous and not cyanotic. No clubbing. Good capillary refill. SKIN: swollen and there is a firmed induration around right inguinal area. Vital Signs (last 8hr) Date Time Temp Pulse Resp B/P (MAP) Pulse Ox O2 Delivery O2 Flow Rate FiO2 03/09/25 08:00 97.7 87 18 108/78 96 Room Air LABS: Laboratory: Test 03/09/25 04:23 03/08/25 07:20 03/08/25 01:46 03/08/25 01:40 Range/Units White Blood Count 13.0 H 4.8-10.8 K/uL Red Blood Count 4.65 4.50-6.20 MIL/uL Hemoglobin 13.6 L 14.0-18.0 g/dL Hematocrit 42.1 42-54 % Mean Corpuscular Volume 90.5 79-99 fL Mean Corpuscular Hemoglobin 29.2 27.0-33.0 pg Mean Corpuscular Hemoglobin Concent 32.3 32.0-36.0 g/dL Red Cell Distribution Width 12.9 11.0-15.5 % Platelet Count 250 130-400 K/uL Mean Platelet Volume 9.8 7.5-10.5 fL Immature Granulocyte % (Auto) 0.3 0-1 % Neutrophils (%) (Auto) 74.5 40.0-77.0 % Lymphocytes (%) (Auto) 13.5 L 21.0-51.0 % Monocytes (%) (Auto) 10.4 3.0-13.0 % Eosinophils (%) (Auto) 1.1 0.0-8.0 % Basophils (%) (Auto) 0.2 0.0-5.0 % Neutrophils # (Auto) 9.7 H 1.8-7.7 K/uL Lymphocytes # (Auto) 1.8 1.0-4.8 K/uL Monocytes # (Auto) 1.4 H 0.1-1.0 K/uL Eosinophils # (Auto) 0.14 0.00-0.70 K/uL Basophils # (Auto) 0.03 0.00-0.20 K/uL Absolute Immature Granulocyte (auto 0.04 0-1 K/uL Nucleated Red Blood Cells 0.0 0.0-0.19 % Sodium Level 135 L 136-145 mmol/L Potassium Level 4.4 3.5-5.1 mmol/L Chloride Level 101 101-111 mmol/L Carbon Dioxide Level 26 21-32 mmol/L Blood Urea Nitrogen 12 7-18 mg/dL Creatinine 0.8 0.5-1.3 mg/dL Glomerular Filtration Rate Calc 111 >90 mL/min Random Glucose 91 70-105 mg/dL Total Calcium 9.0 8.5-10.1 mg/dL Total Bilirubin 0.8 0.2-1.0 mg/dL Aspartate Amino Transf (AST/SGOT) 17 10-37 U/L Alanine Aminotransferase (ALT/SGPT) 25 12-78 U/L Alkaline Phosphatase 61 50-136 U/L Total Protein 7.1 6.0-8.3 g/dL Albumin 3.0 L 3.5-5.0 g/dL Erythrocyte Sedimentation Rate 31 H 0-15 MM/HR Hemoglobin A1c 5.5 4.0-6.0 % Estimated Average Glucose (eAG) 111 70-126 mg/dL Lactic Acid Level 1.1 0.8-2.5 mmol/L Troponin I High Sensitivity 21 4-75 ng/L Procalcitonin < 0.05 L 0.05-0.5 ng/mL Influenza Type A Antigen Negative For Type A NEGATIVE Influenza Type B Antigen Negative For Type B NEGATIVE SARS-CoV-2 Antigen (Rapid) PRESUMPTIVE NEGATIVE NEGATIVE Urine Color YELLOW YELLOW Urine Appearance CLEAR CLEAR Urine pH 7.0 5.0-8.0 Urine Specific [place] 1.028 1.001-1.031 Urine Protein NEGATIVE NEGATIVE mg/dL Urine Glucose (UA) NEGATIVE NEGATIVE mg/dL Urine Ketones NEGATIVE NEGATIVE mg/dL Urine Occult Blood +- (TRACE) H NEGATIVE Urine Nitrate NEGATIVE NEGATIVE Urine Bilirubin NEGATIVE NEGATIVE mg/dL Urine Urobilinogen 0.2 0.2-1.0 mg/dL Urine Leukocyte Esterase NEGATIVE NEGATIVE Kleber/uL Urine RBC 6-10 H 0-1 /HPF Urine WBC 0-1 0-1 /HPF Urine Bacteria None None Seen /HPF Test 03/08/25 01:25 Range/Units Total Creatine Kinase 166 21-232 U/L Current Medications Medications (Trade) Dose Ordered Sig/John Route PRN Reason Start Time Stop Time Status Last Admin Dose Admin Acetaminophen (TYLenol 325MG TAB) 650 mg Q4H PRN PO MILD PAIN (1-3) 03/08/25 03:30 04/07/25 03:29 Acetaminophen (TYLenol 325MG TAB) 650 mg Q6H PRN PO TEMPERATURE GREATER THAN 101.5 03/08/25 03:30 04/07/25 03:29 Acetaminophen/ Hydrocodone Bitart (NORco 5/325MG) 1 tab Q4H PRN PO MODERATE PAIN (4-6) 03/08/25 03:30 03/13/25 03:29 Cefepime HCl (MAXipime 1 GM vial) 1 gm Q8H IVPB 03/08/25 12:00 03/18/25 11:59 03/09/25 11:58 1 GM Famotidine (Pepcid 20mg Tab) 20 mg DAILY PO 03/08/25 09:00 04/07/25 08:59 03/09/25 09:05 20 MG Lisinopril (Prinivil 10mg) 10 mg DAILY PO 03/09/25 09:00 04/08/25 08:59 03/09/25 09:05 10 MG Magnesium Sulfate 50 ml @ 0 mls/hr PROTOCOL PRN IV OTHER [SEE ORDER COMMENTS] 03/08/25 03:30 04/07/25 03:29 Montelukast Sodium (SinguLAIR) 10 mg DAILY PO 03/09/25 09:00 04/08/25 08:59 03/09/25 09:05 10 MG Ondansetron HCl (zoFRAN 4MG INJ) 4 mg Q6H PRN IV NAUSEA/VOMITING 03/08/25 03:30 04/07/25 03:29 Piperacillin Sod/ Tazobactam Sod 50 ml @ 12.5 mls/hr Q8H IV 03/08/25 04:00 03/08/25 11:52 DC 03/08/25 04:10 12.5 MLS/HR Potassium Chloride 100 ml @ 100 mls/hr AD PRN IV POTASSIUM PROTOCOL 03/08/25 03:30 04/07/25 03:29 Potassium Chloride (K-Dur/Klor-Con 20meq) 20 meq AD PRN PO POTASSIUM PROTOCOL 03/08/25 03:30 04/07/25 03:29 Potassium Chloride (KCl 10% Elixir 20meq/15ml) 20 meq AD PRN PO POTASSIUM PROTOCOL 03/08/25 03:30 04/07/25 03:29 Sodium Chloride 1,000 ml @ 100 mls/hr Q10H IV 03/08/25 03:30 03/09/25 09:09 DC 03/08/25 23:13 100 MLS/HR Vancomycin HCl 250 ml @ 125 mls/hr ONCE IV 03/08/25 03:30 03/08/25 03:27 DC Vancomycin HCl 250 ml @ 125 mls/hr Q12H IV 03/08/25 12:00 03/18/25 11:59 03/09/25 11:58 125 MLS/HR Vancomycin HCl (Vancomycin Protocol) 1 each AD IV 03/08/25 03:30 03/22/25 03:29 Vancomycin HCl (Vancomycin 1.5 Gm/250 ml Bag) 1.5 gm ONCE STAT IV 03/08/25 01:15 03/08/25 01:26 DC DIAGNOSTICS / RADIOLOGY: PATIENT: DICK FANG MR#: [id number] : 1980 SEX: M AGE: 44 LOCATION: [facility] ORDER 5 STATUS: ADM IN REPORT#: [id number] SERVICE 4 REASON: R GROIN ABSCESS/GROWTH ORDERING PHYSICIAN: PADMA BLACK PEA [employer]IN[employer] MECH[employer]IC PROCEDURE: SOFT GROIN - US SOFT TISSUE GROIN EXAM: Ultrasound Soft Tissue Groin CLINICAL HISTORY: Right groin abscess/growth TECHNIQUE: Real-time ultrasound examination performed with image documentation. COMPARISON: None provided. FINDINGS: Echogenic area identified in the right groin measuring approximately 3.3 ??? 1.3 ??? 3.5 cm. Associated surrounding soft tissue redness and edema are noted, consistent with inflammatory change. No discrete drainable abscess or solid mass lesion identified. IMPRESSION: * Echogenic soft tissue thickening in the right groin with surrounding edema, suggestive of cellulitis or phlegmon. * No definite drainable abscess identified. * Recommend clinical correlation and short-term follow-up if symptoms persist or worsen. /[place] DICTATED BY: ODELL CHE MD DATE: 03/09/25222 ELECTRONICALLY SIGNED BY: ODELL CHE MD DATE: 03/09/25222 ASSESSMENT: Recurrent right inguinal abscess POA R/o deep abscess or early necrotizing infection POA Sepsis 2/2 right inguinal abscess POA Morbid obesity POA Hyperglycemia POA Possible dehydration POA Hypertension POA PLAN: Recurrent right inguinal abscess, R/o deep abscess or early necrotizing infection, Sepsis 2/2 right inguinal abscess * Soft tissue ultrasound of the groin showed thickening in right groin with surrounding edema, suggestive of cellulitis or phlegmon but showed no definite drainable abscess. * General surgery consulted for recurrent right inguinal abscess and to rule out deep abscess versus early necrotizing infection. * General surgery recommended conservative management with IV antibiotics and warm compresses 3 times daily * Infectious disease consulted for antibiotic management * Added cefepime and continued vancomycin - Day 2 * On acetaminophen p.r.n. and hydrocodone p.r.n. for pain * 1000 mL normal saline at 100 mL/hour * WBC tends 13.3>12.5>13.0 * Blood cultures no growth after 24 hours * Urine cultures showed < 10,000 CFU * Absence culture showed Gram-positive and negative rods. Final report awaited Hypertension * Blood pressure today 108/78 * On lisinopril 10 mg (Home Medication) ATTESTATION BY PHYSICIAN I have seen and examined the patient. I reviewed the documentation, medical decision making, and treatment plan as noted by the resident physician above. I agree with the findings and plan of care. WESLEY DONAHUE MD, SYED M MD Mar 09, 2025 12:48
[2025-03-09 14:43] LABS: ADD UA MICROSCOPIC YES; APPEARANCE,URINE CLEAR (CLEAR); GLUCOSE, URINE (UA) NEGATIVE (NEGATIVE); LEUKOCYTE ESTERASE ,URINE NEGATIVE Leu/uL (NEGATIVE); NITRATE,URINE NEGATIVE (NEGATIVE); OCCULT BLOOD,URINE NEGATIVE (NEGATIVE)
--- NOTE | 2025-03-09 14:51 | PN ---
INFECTIOUS DISEASE PROGRESS NOTE Date of Service: Mar 09, 2025 SUBJECTIVE: This is a 44-year-old male patient admitted for evaluation of a right groin abscess which failed outpatient treatment and for fever. Patient was evaluated by general surgeon and no surgical intervention was required. No more drainage observed at this time. The preliminary wound culture results is growing coagulase-negative Staphylococcus, Gram-positive rods resembling diphtheroids and 1+ Gram-negative rods. Patient is currently on cefepime and vancomycin. Patient had a low-grade fever of 99.9 last night but no fever this morning, temperature is 97.7 and a WBC of 13.0. From Infectious Disease standpoint patient can be discharged on doxycycline 100 mg p.o. b.i.d. x 10 days. PHYSICAL EXAM EYES: Anicteric. Pupils equal and reactive. HENT: No oral thrush seen, moist Oral mucosa. NECK: Supple, no JVD or thyromegaly. LUNGS: Good air entry. No rales, no rhonchi. CARDIOVASCULAR: S1, S2 regular. No murmur heard. ABDOMEN: Soft, non tender, bowel sounds present, no organomegaly. CENTRAL NERVOUS SYSTEM: Awake, alert, oriented x 3. SKIN: No rashes, no swelling. LYMPHATICS: No peripheral lymphadenopathy. MUSCULOSKELETAL: No joint swelling, erythema or tenderness. EXTREMITIES: No cyanosis or clubbing. Right groin abscess. BACK: No deformity, no pressure ulcer. GENITOURINARY: No dysuria or hematuria. Vital Sign (Last 12 Hours) 03/09/25 03/09/25 03/09/25 04:00 08:00 12:48 Temp 98.4 97.7 Pulse 90 87 Resp 20 18 B/P (MAP) 145/83 108/78 Pulse Ox 97 96 98 O2 Delivery Room Air Room Air Room Air* O2 Flow Rate 0 FiO2 21 Intake & Output (last 24hrs) 03/08/25 03/08/25 03/09/25 15:00 23:00 07:00 Intake Total 500 ml Output Total 600 ml 200 ml Balance -100 ml -200 ml LABS: Laboratory: Test 03/09/25 14:15 03/09/25 04:23 03/08/25 07:20 03/08/25 01:46 Range/Units Urine Color LIGHT-YELLOW YELLOW Urine Appearance CLEAR CLEAR Urine pH 5.5 5.0-8.0 Urine Specific [place] 1.012 1.001-1.031 Urine Protein NEGATIVE NEGATIVE mg/dL Urine Glucose (UA) NEGATIVE NEGATIVE mg/dL Urine Ketones NEGATIVE NEGATIVE mg/dL Urine Occult Blood NEGATIVE NEGATIVE Urine Nitrate NEGATIVE NEGATIVE Urine Bilirubin NEGATIVE NEGATIVE mg/dL Urine Urobilinogen 0.2 0.2-1.0 mg/dL Urine Leukocyte Esterase NEGATIVE NEGATIVE Kleber/uL Urine RBC 2-5 H 0-1 /HPF Urine WBC 0-1 0-1 /HPF Urine Bacteria None None Seen /HPF White Blood Count 13.0 H 4.8-10.8 K/uL Red Blood Count 4.65 4.50-6.20 MIL/uL Hemoglobin 13.6 L 14.0-18.0 g/dL Hematocrit 42.1 42-54 % Mean Corpuscular Volume 90.5 79-99 fL Mean Corpuscular Hemoglobin 29.2 27.0-33.0 pg Mean Corpuscular Hemoglobin Concent 32.3 32.0-36.0 g/dL Red Cell Distribution Width 12.9 11.0-15.5 % Platelet Count 250 130-400 K/uL Mean Platelet Volume 9.8 7.5-10.5 fL Immature Granulocyte % (Auto) 0.3 0-1 % Neutrophils (%) (Auto) 74.5 40.0-77.0 % Lymphocytes (%) (Auto) 13.5 L 21.0-51.0 % Monocytes (%) (Auto) 10.4 3.0-13.0 % Eosinophils (%) (Auto) 1.1 0.0-8.0 % Basophils (%) (Auto) 0.2 0.0-5.0 % Neutrophils # (Auto) 9.7 H 1.8-7.7 K/uL Lymphocytes # (Auto) 1.8 1.0-4.8 K/uL Monocytes # (Auto) 1.4 H 0.1-1.0 K/uL Eosinophils # (Auto) 0.14 0.00-0.70 K/uL Basophils # (Auto) 0.03 0.00-0.20 K/uL Absolute Immature Granulocyte (auto 0.04 0-1 K/uL Nucleated Red Blood Cells 0.0 0.0-0.19 % Sodium Level 135 L 136-145 mmol/L Potassium Level 4.4 3.5-5.1 mmol/L Chloride Level 101 101-111 mmol/L Carbon Dioxide Level 26 21-32 mmol/L Blood Urea Nitrogen 12 7-18 mg/dL Creatinine 0.8 0.5-1.3 mg/dL Glomerular Filtration Rate Calc 111 >90 mL/min Random Glucose 91 70-105 mg/dL Total Calcium 9.0 8.5-10.1 mg/dL Total Bilirubin 0.8 0.2-1.0 mg/dL Aspartate Amino Transf (AST/SGOT) 17 10-37 U/L Alanine Aminotransferase (ALT/SGPT) 25 12-78 U/L Alkaline Phosphatase 61 50-136 U/L Total Protein 7.1 6.0-8.3 g/dL Albumin 3.0 L 3.5-5.0 g/dL Erythrocyte Sedimentation Rate 31 H 0-15 MM/HR Hemoglobin A1c 5.5 4.0-6.0 % Estimated Average Glucose (eAG) 111 70-126 mg/dL Lactic Acid Level 1.1 0.8-2.5 mmol/L Troponin I High Sensitivity 21 4-75 ng/L Procalcitonin < 0.05 L 0.05-0.5 ng/mL Influenza Type A Antigen Negative For Type A NEGATIVE Influenza Type B Antigen Negative For Type B NEGATIVE SARS-CoV-2 Antigen (Rapid) PRESUMPTIVE NEGATIVE NEGATIVE Test 03/08/25 01:25 Range/Units Total Creatine Kinase 166 21-232 U/L DIAGNOSTICS / RADIOLOGY: PATIENT: DICK FANG ACCT: [id number] LOC: [facility] U: [id number] AGE/SX: 44/M ROOM: [facility] RE03/08/[address]: HAILY CHAVES MD : 1980 BED: 1 DIS: STATUS: ADM IN TLOC: SPEC: [id number] ALCIDES: 03/08/25-0140 STATUS: RES REQ: [id number] RECD: 03/08/[address]: MYAH LOVETT MD SOURCE: LEG ENTR: 03/08/25 FEMI ALONSO: JOHN SPDESC: ABSCESS ORDERED: AEROBIC CULTURE Procedure Result Honey Date-Time AEROBIC CULTURE Preliminary 03/09/25-1006 [facility] DESCRIPTION: REPORT 1: 1+ SKIN LACI ; STUDIES TO CONTINUE COAGULASE NEGATIVE STAPHYLOCOCCUS GRAM POSITIVE RODS RESEMBLING DIPHTHEROIDS 1+ GRAM NEGATIVE RODS IDENTIFICATION AND SENSITIVITY TO FOLLOW ASSESSMENT: [ ] PLAN: Discharge on Doxycycline 100mg Bid x 10 days Prescription was written. ATTESTATION BY PHYSICIAN I have seen and examined the patient. I reviewed the documentation, medical decision making, and treatment plan as noted by the mid-level provider above. I agree with the findings and plan of care. LAVERN EATON MD, MIRTA L [facility] Mar 09, 2025 14:51
--- NOTE | 2025-03-09 15:26 | DS ---
Discharge Summary Hospital Course Summary: The patient is a 44-year-old male with past medical history of hypertension (on Lisinopril 10 MG OD). The patient came to the ER with complaint of fever and increasing heart rate. As per the patient, he was in his usual state of health but at night between 9:00 p.m. until p.m. the patient woke up with increasing heart rate in the range of 120-140s and he was feeling hot therefore he checked his temperature and it was around 102-103 F. As per the patient, the patient had ear infection 2 weeks ago for which she was given antibiotics. He also had a large boil on his right middle medial to anterior thigh that reduced after he took doxycycline for 2 days. The patient did not like doxycycline and on request it was changed to azithromycin which he took for 5 days. The patient also complained of pain in the periumbilical area which was described as sharp in nature. The patient came to the ER with temperature of 100.6 F, heart rate 124, respiratory rate 20, blood pressure 155/79 and maintaining oxygen at 97% on room air. On admission the patient's hemoglobin is 15.1, WBC 13.3, platelets 321, sodium 135, potassium 4.1, chloride 99, bicarbonate 28, BUN 19, creatinine 0.9, troponin 25, lactic acid 2.2, and creatinine kinase 166. Urine showed trace occult blood and RBCs 6-10. Chest x-ray showed no cardiopulmonary pathology. Due to the periumbilical pain, a CT scan abdomen/pelvis was ordered but the patient said that he could not stay in the CT scan machine as he was getting claustrophobic therefore the CT scan could not be completed as the patient refused. Therefore, a soft tissue ultrasound was done of the boil on the right inguinal region. General surgery was consulted for recurrent right inguinal abscess to rule out deep abscess versus early necrotizing infection. The patient was started on vancomycin and Zosyn and Infectious Disease was consulted for antibiotic management. Blood culture and urine culture were sent from the ER. During the hospital course, the patient was afebrile and stated that he was feeling better. Initially the patient complained of abdominal tenderness in the periumbilical region therefore a possibility of CT abdomen/pelvis was discussed for which the patient was not fully convinced due to his feeling of claustrophobic in the machine. He was told that an option of getting Valium or Ativan before going for the scan to calm the patient down. The patient voiced understanding and stated that he will get back to us with a final decision. General surgery saw the patient and recommended no surgical intervention at the time with orders to treat with conservative management with IV antibiotics and warm compresses 3 times a day. The patient discussed with Dr. Hilario, General Surgeon, for the CT scan and as per the patient and the nurse both, general surgeon recommended against a CT scan. Infectious Disease saw the patient and surgery antibiotic from vancomycin Zosyn to vancomycin and cefepime. Patient's blood culture showed no growth for 24 hours and urine culture showed <10,000 CFU. The culture from the abscess showing Gram-positive and Gram-negative rods. The soft tissue ultrasound showed no definite drainable abscess along with thickening in the right groin with surrounding edema that is suggestive of cellulitis or phlegmon. The patient was discharged today after Infectious Disease prescribed doxycycline 100 mg b.i.d. for 10 days. The patient is stable on discharge. Real Estate Sales Agent(s): General surgery PLAN: No clinical signs of hernia. Small abscess at the right upper thigh that has a lready been draining. For now we will treat with conservative measure with IV antibiotics and warm compresses3 times a day Infectious disease PLAN: * Discontinue Zosyn. * Continue vancomycin. * Start the patient on cefepime. * Continue wound care. * Follow up cultures. * Continue pain management Procedure(s): IMAGING REPORT Signed PATIENT: DICK FANG MR#: [id number] : 1980 SEX: M AGE: 44 LOCATION: [facility] ORDER 4 STATUS: ADM IN REPORT#: [id number] SERVICE 3 REASON: r/p sepsis ORDERING PHYSICIAN: MYAH LOVETT MD PROCEDURE: CXR1VW - CHEST 1VW EXAM: CR Chest, 1 view CLINICAL HISTORY: Sepsis. COMPARISON: None provided. FINDINGS: Portions of the bilateral lower zones and CP angles are excluded from the image, which limits the optimal evaluation. The remaining lung simms are clear. The lungs show no infiltrates or other acute findings. No pleural effusion or pneumothorax. The cardiomediastinal silhouette is within normal limits. No acute osseous abnormality. IMPRESSION: No acute cardiopulmonary process is evident. /[place] DICTATED BY: JOHNNY SOLITARIO Jr., MD DATE: 03/08/25441 ELECTRONICALLY SIGNED BY: JOHNNY SOLITARIO Jr., MD DATE: 03/08/25441 IMAGING REPORT Signed PATIENT: DICK FANG MR#: [id number] : 1980 SEX: M AGE: 44 LOCATION: [facility] ORDER 5 STATUS: ADM IN REPORT#: [id number] SERVICE 4 REASON: R GROIN ABSCESS/GROWTH ORDERING PHYSICIAN: PADMA BLACK STUDENT MINISTRY PASTOR PROCEDURE: SOFT GROIN - US SOFT TISSUE GROIN EXAM: Ultrasound Soft Tissue Groin CLINICAL HISTORY: Right groin abscess/growth TECHNIQUE: Real-time ultrasound examination performed with image documentation. COMPARISON: None provided. FINDINGS: Echogenic area identified in the right groin measuring approximately 3.3 ??? 1.3 ??? 3.5 cm. Associated surrounding soft tissue redness and edema are noted, consistent with inflammatory change. No discrete drainable abscess or solid mass lesion identified. IMPRESSION: * Echogenic soft tissue thickening in the right groin with surrounding edema, suggestive of cellulitis or phlegmon. * No definite drainable abscess identified. * Recommend clinical correlation and short-term follow-up if symptoms persist or worsen. /[place] DICTATED BY: ODELL CHE MD DATE: 03/09/25222 ELECTRONICALLY SIGNED BY: ODELL CHE MD DATE: 03/09/25222 Assessment/Plan: ASSESSMENT: Recurrent right inguinal abscess POA R/o deep abscess or early necrotizing infection POA Sepsis 2/2 right inguinal abscess POA Morbid obesity POA Hyperglycemia POA Possible dehydration POA Hypertension POA PLAN: Recurrent right inguinal abscess, R/o deep abscess or early necrotizing infection, Sepsis 2/2 right inguinal abscess * Soft tissue ultrasound of the groin showed thickening in right groin with surrounding edema, suggestive of cellulitis or phlegmon but showed no definite drainable abscess. * General surgery consulted for recurrent right inguinal abscess and to rule out deep abscess versus early necrotizing infection. * General surgery recommended conservative management with IV antibiotics and warm compresses 3 times daily * Infectious disease consulted for antibiotic management * Added cefepime and continued vancomycin - Day 2 * On acetaminophen p.r.n. and hydrocodone p.r.n. for pain * 1000 mL normal saline at 100 mL/hour * WBC tends 13.3>12.5>13.0 * Blood cultures no growth after 24 hours * Urine cultures showed < 10,000 CFU * Absence culture showed Gram-positive and negative rods. Final report awaited Hypertension * Blood pressure today 108/78 * On lisinopril 10 mg (Home Medication) Discharge Instructions: *Follow up with your primary care physician in 2 - 3 days after discharge. *Continue all medications as prescribed. Do not discontinue or change dosages without consulting your PCP. *Gradually resume normal activities as tolerated. *Continue a balanced diet . Reduce salt intake to help manage BP. *Seek immediate medical attention if you experience chest pain, SOB or severe h eadache. Home Medications: Reported Medications Montelukast Sodium (Montelukast Sodium) 10 Mg Tablet, 1 TAB PO DAILY for 30 Days, #30 TAB 0 Refills 03/08/25 Lisinopril (Lisinopril) 10 Mg Tablet, 1 TAB PO DAILY for 30 Days, #30 TAB 0 Refills 03/08/25 Continued Medications: Lisinopril (Lisinopril) 10 Mg Tablet 1 TAB PO DAILY for 30 Days, #30 TAB 0 Refills Montelukast Sodium (Montelukast Sodium) 10 Mg Tablet 1 TAB PO DAILY for 30 Days, #30 TAB 0 Refills Time spent arranging discharge: 1-30 minutes ATTESTATION BY PHYSICIAN I have seen and examined the patient. I reviewed the documentation, medical decision making, and treatment plan as noted by the resident physician above. I agree with the findings and plan of care. WESLEY DONAHUE MD, SYED M MD Mar 09, 2025 15:26
[2025-03-09 16:00] VITALS: BP 112/66; PULSE 87; RESP 18; TEMP 97.7
--- NOTE | 2025-03-09 16:20 | NUR ---
PATIENT DISCHARGED PATIENT IV SITE DISCONTINUED PATIENT TOLERATED THE PROCEDURE WELL. NO DISTRESS NOTED AT THIS TIME. ERICA MARCUM ROUNDED AT THIS TIME. NO NEW ORDERS WERE GIVEN. PATIENT WALKED TO THE FRONT LOBBY. ALL ITEMS WERE TAKEN FROM THE ROOM AT THIS TIME.
--- NOTE | 2025-03-09 16:32 | PN ---
This is a 44-year-old male with concerns of right inguinal abscess Interval history: This 44-year-old male seen in his room resting No drainage noted No significant induration or discomfort at this time Patient is on IV antibiotics and has been converted to p.o. antibiotics ready for discharge today Physical exam General: Awake alert and oriented Heart: Regular rate and rhythm} Lungs: Clear to auscultation no distress Abdomen: [Soft, nontender, nondistended Assessment : This is a 44-year-old male with concerns of right inguinal abscess Plan: From surgical standpoint no further intervention needed Abscess appears to have been drained No pain reported From surgical standpoint patient is cleared for discharge but stressed the importance of compliance with the antibiotic management Surgical case has been discussed with my supervising physician in the above plan was formulated and agreed upon We appreciate the hospitalist team for us to participate in patient's care. Greater than 45 minutes of time spent patient, reviewing chart, working on documentation Vitals/Labs Vital Signs Date Time Temp Pulse Resp B/P (MAP) Pulse Ox O2 Delivery O2 Flow Rate FiO2 03/09/25 12:48 98 Room Air* 0 21 03/09/25 08:00 97.7 87 18 108/78 Laboratory Tests 03/09/25 04:23 Medications Current Medications Sodium Chloride 4,350 ml @ 1,450 mls/hr ONCE ONCE IV Last administered on 03/08/25at 01:35; Start 03/08/25 at 01:30; Stop 03/08/25 at 04:29; Status DC Vancomycin HCl 1.5 gm ONCE STAT IV; Start 03/08/25 at 01:15; Stop 03/08/25 at 01:26; Status DC Vancomycin HCl 500 ml @ 125 mls/hr ONCE ONCE IV Last administered on 03/08/25at 01:53; Start 03/08/25 at 02:00; Stop 03/08/25 at 05:59; Status DC Vancomycin HCl 500 ml @ As Directed STK-MED ONCE IV; Start 03/08/25 at 01:30; Stop 03/08/25 at 01:31; Status DC Ibuprofen 600 mg ONCE ONCE PO Last administered on 03/08/25at 02:55; Start 03/08/25 at 03:00; Stop 03/08/25 at 03:01; Status DC Acetaminophen 650 mg Q6H PRN PO; Start 03/08/25 at 03:30; Stop 04/07/25 at 03:29 Acetaminophen 650 mg Q4H PRN PO; Start 03/08/25 at 03:30; Stop 04/07/25 at 03:29 Ondansetron HCl 4 mg Q6H PRN IV; Start 03/08/25 at 03:30; Stop 04/07/25 at 03:29 Famotidine 20 mg DAILY PO Last administered on 03/09/25at 09:05; Start 03/08/25 at 09:00; Stop 04/07/25 at 08:59 Vancomycin HCl 250 ml @ 125 mls/hr ONCE IV; Start 03/08/25 at 03:30; Stop 03/08/25 at 03:27; Status DC Piperacillin Sod/ Tazobactam Sod 50 ml @ 12.5 mls/hr Q8H IV Last administered on 03/08/25at 04:10; Start 03/08/25 at 04:00; Stop 03/08/25 at 11:52; Status DC Acetaminophen/ Hydrocodone Bitart 1 tab Q4H PRN PO; Start 03/08/25 at 03:30; Stop 03/13/25 at 03:29 Sodium Chloride 1,000 ml @ 100 mls/hr Q10H IV Last administered on 03/08/25at 23:13; Start 03/08/25 at 03:30; Stop 03/09/25 at 09:09; Status DC Magnesium Sulfate 50 ml @ 0 mls/hr PROTOCOL PRN IV; Start 03/08/25 at 03:30; Stop 04/07/25 at 03:29 Potassium Chloride 100 ml @ 100 mls/hr AD PRN IV; Start 03/08/25 at 03:30; Stop 04/07/25 at 03:29 Potassium Chloride 20 meq AD PRN PO; Start 03/08/25 at 03:30; Stop 04/07/25 at 03:29 Potassium Chloride 20 meq AD PRN PO; Start 03/08/25 at 03:30; Stop 04/07/25 at 03:29 Vancomycin HCl 1 each AD IV; Start 03/08/25 at 03:30; Stop 03/22/25 at 03:29 Vancomycin HCl 250 ml @ 125 mls/hr Q12H IV Last administered on 03/09/25at 11:58; Start 03/08/25 at 12:00; Stop 03/18/25 at 11:59 Lisinopril 10 mg DAILY PO Last administered on 03/09/25at 09:05; Start 03/09/25 at 09:00; Stop 04/08/25 at 08:59 Montelukast Sodium 10 mg DAILY PO Last administered on 03/09/25at 09:05; Start 03/09/25 at 09:00; Stop 04/08/25 at 08:59 Cefepime HCl 1 gm Q8H IVPB Last administered on 03/09/25at 11:58; Start 03/08/25 at 12:00; Stop 03/18/25 at 11:59 ERICA ROSA Jr. PAC Mar 09, 2025 16:32
== END 2025-03-09 16:30 | disposition home or self-care (01) ==
LOC: EDH 01:08 → INTOOBSV 03:05 → EDHIP 03:05 → 4DH 04:45
PROVIDERS: ADMIT Hospitalist; ATTEND Hospitalist
DX: A41.9 Sepsis, unspecified organism (principal); L02.214 Cutaneous abscess of groin; L02.415 Cutaneous abscess of right lower limb; I10 Essential (primary) hypertension; F40.240 Claustrophobia; K40.90 Unilateral inguinal hernia, without obstruction or gangrene, not specified as recurrent; J30.2 Other seasonal allergic rhinitis; E66.01 Morbid (severe) obesity due to excess calories; R73.9 Hyperglycemia, unspecified; Z20.822 Contact with and (suspected) exposure to COVID-19; Z79.899 Other long term (current) drug therapy; Z68.41 Body mass index [BMI] 40.0-44.9, adult; Z98.890 Other specified postprocedural states
CPT/HCPCS: 99285; 96361 ×2; 96366 ×4; 96365; 96367; 71045; 87426; 96376; 83036; 82550; 84484 ×2; 80053 ×2; 85025 ×3; 85651; 87040 ×2; 87070; 87086 ×3; 87186 ×2; 87804 ×2; 83605 ×2; 81001 ×2; 36415 ×2; 76882; 84145; 82948; J2543; J3373 ×3; J0692 ×4; J3375; G0378; 80048